=== PATIENT | female | born 1930 | race Caucasian/White ===

== ENCOUNTER → 2020-09-18 | Outpatient (CLI) | payer MEDICARE, BC | LOC: RAD 08:29 | DX: I51.7 Cardiomegaly (principal); J90 Pleural effusion, not elsewhere classified; K57.30 Diverticulosis of large intestine without perforation or abscess without bleeding; I77.810 Thoracic aortic ectasia; R91.1 Solitary pulmonary nodule; R16.0 Hepatomegaly, not elsewhere classified; Z90.49 Acquired absence of other specified parts of digestive tract | CPT/HCPCS: Q9967 ==